=== PATIENT | female | born 1945 | race Caucasian/White ===

== ENCOUNTER → 2017-05-25 | Outpatient (CLI) | payer BC, OTHER, MEDICARE ==
--- NOTE | 2017-05-25 11:22 | RADIOLOGY REPORT (SQ) ---
EXAM DESCRIPTION: CT ABD/PELVIS NO ORAL OR IV; EMPLOYEE COMPLETED DATE/TIME: 05/25/2017 11:00 am REASON FOR STUDY: GROSS HEMATURIA R31.0 GROSS HEMATURIA COMPARISON: None. TECHNIQUE: CT scan of the abdomen and pelvis performed without intravenous or oral contrast. Images reviewed with lung, soft tissue, and bone windows. Reconstructed coronal and sagittal MPR images revi ewed. All images stored on PACS. All CT scanners at this facility use dose modulation, iterative reconstruction, and/or weight based d osing when appropriate to reduce radiation dose to as low as reasonably achievable (ALARA). [facility]: Dose Right [facility]: CareDose [facility]: Dose Right [facility]: Teradose 4D [facility]: Smart [employer] RADIATION DOSE: CT Rad equipment meets quality standard of care and radiation dose reduction techniq ues were employed. CTDIvol: 5.4 mGy. DLP: 264 mGy-cm.mGy. LIMITATIONS: None. FINDINGS: LOWER CHEST: Calcified granuloma. Large hiatal hernia. NON-CONTRASTED LIVER, SPLEEN, ADRENALS: Old granulomatous disease in the spleen. PANCREAS: No masses. No peripancreatic inflammatory changes. GALLBLADDER: No identified stones by CT criteria. No inflammatory changes to suggest cholecystitis. RIGHT KIDNEY AND URETER: No suspicious masses. Assessment limited by lack of IV contrast. No signif icant calcifications. No hydronephrosis or hydroureter. LEFT KIDNEY AND URETER: No suspicious masses. Assessment limited by lack of IV contrast. No signifi cant calcifications. No hydronephrosis or hydroureter. AORTA AND RETROPERITONEUM: No aneurysm. No retroperitoneal masses or adenopathy. BOWEL AND PERITONEAL CAVITY: Sigmoid diverticulosis. No obvious masses or inflammatory changes. No f ree fluid. APPENDIX: Small appendicolith. PELVIS, BLADDER, AND ABDOMINAL WALL:Small calcified uterine fibroid. BONES: No significant findings. OTHER: No other significant finding. IMPRESSION: NO SIGNIFICANT OR ACUTE PROCESS IN THE ABDOMEN OR PELVIS. COMMENT: Quality ID # 436: Final reports with documentation of one or more dose reduction techniques (e.g., Automated exposure control, adjustment of the mA and/or kV according to patient size, use of iterative reconstruction technique) TECHNICAL DOCUMENTATION: JOB ID: [id number] [employer]- All Rights Reserved Reading location - IP/workstation name: MECHANICAL ENGINEERING ADVISOREMILY
--- NOTE | 2017-05-25 11:22 | RADIOLOGY REPORT (SQ) ---
EXAM DESCRIPTION: CT ABD/PELVIS NO ORAL OR IV; EMPLOYEE COMPLETED DATE/TIME: 05/25/2017 11:00 am REASON FOR STUDY: GROSS HEMATURIA R31.0 GROSS HEMATURIA COMPARISON: None. TECHNIQUE: CT scan of the abdomen and pelvis performed without intravenous or oral contrast. Images reviewed with lung, soft tissue, and bone windows. Reconstructed coronal and sagittal MPR images revi ewed. All images stored on PACS. All CT scanners at this facility use dose modulation, iterative reconstruction, and/or weight based d osing when appropriate to reduce radiation dose to as low as reasonably achievable (ALARA). [facility]: Dose Right [facility]: CareDose [facility]: Dose Right [facility]: Teradose 4D [facility]: [employer] RADIATION DOSE: CT Rad equipment meets quality standard of care and radiation dose reduction techniq ues were employed. CTDIvol: 5.4 mGy. DLP: 264 mGy-cm.mGy. LIMITATIONS: None. FINDINGS: LOWER CHEST: Calcified granuloma. Large hiatal hernia. NON-CONTRASTED LIVER, SPLEEN, ADRENALS: Old granulomatous disease in the spleen. PANCREAS: No masses. No peripancreatic inflammatory changes. GALLBLADDER: No identified stones by CT criteria. No inflammatory changes to suggest cholecystitis. RIGHT KIDNEY AND URETER: No suspicious masses. Assessment limited by lack of IV contrast. No signif icant calcifications. No hydronephrosis or hydroureter. LEFT KIDNEY AND URETER: No suspicious masses. Assessment limited by lack of IV contrast. No signifi cant calcifications. No hydronephrosis or hydroureter. AORTA AND RETROPERITONEUM: No aneurysm. No retroperitoneal masses or adenopathy. BOWEL AND PERITONEAL CAVITY: Sigmoid diverticulosis. No obvious masses or inflammatory changes. No f ree fluid. APPENDIX: Small appendicolith. PELVIS, BLADDER, AND ABDOMINAL WALL:Small calcified uterine fibroid. BONES: No significant findings. OTHER: No other significant finding. IMPRESSION: NO SIGNIFICANT OR ACUTE PROCESS IN THE ABDOMEN OR PELVIS. COMMENT: Quality ID # 436: Final reports with documentation of one or more dose reduction techniques (e.g., Automated exposure control, adjustment of the mA and/or kV according to patient size, use of iterative reconstruction technique) TECHNICAL DOCUMENTATION: JOB ID: [id number] [employer]- All Rights Reserved Reading location - IP/workstation name: PATIENT REGISTRATION REPRESENTATIVEEMILY
== END ==
LOC: RAD 10:37
PROVIDERS: ATTEND Urology
DX: R31.0 Gross hematuria (principal)
CPT/HCPCS: 74176

== ENCOUNTER 2018-01-16 20:40 | Emergency (ER) | payer BC, MEDICARE ==
--- NOTE | 2018-01-16 21:23 | ER Document Report ---
ED Neuro Symptoms/Deficit - General Chief Complaint: S/S of Possible Stroke Stated Complaint: HAND PAIN Time Seen by Provider: 01/16/18 21:22 Notes: 72-year-old female to the emergency department for evaluation of left hand swelling. Patient also has been complaining of headaches. Has been having dizzy spells as well. Dizzy spells have been going on for several days. Was seen by primary care doctor this week and had a workup. They do not know the results. Denies any slurred speech however daughter states that when she gets anxious she has a hard time finding her words. Currently does not have a headache. Currently does not complain of any weakness. Also complaining of a swelling that was noticed on the left hand. Began to get swollen and pain began to migrate up her left arm. Appears to be a hematoma but she does not remember hitting it on anything. TRAVEL OUTSIDE OF THE [place] IN LAST 30 DAYS: No - HPI Patient complains to provider of: No: Difficulty standing, Facial Droop, Falling , Paralysis, Paresthesia, Speech Impairment, Vision Changes, Weakness Symptoms are: Intermittent episodes - Related Data Allergies/Adverse Reactions: No Known Allergies Allergy (Verified 03/15/13 08:15) Past Medical History - General Information source: Patient - Social History Smoking Status: Never Smoker Cigarette use (# per day): No Frequency of alcohol use: None Drug Abuse: None Lives with: Family Family History: Reviewed & Not Pertinent Neurological Medical History: Denies: Hx Seizures Traumatic Medical History: Reports: Hx Fractures - knee Past Surgical History: Reports: Hx Orthopedic Surgery - Immunizations Hx Diphtheria, Pertussis, Tetanus Vaccination: No Review of Systems - Review of Systems Notes: Constitutional: denies: Chills, Diaphoresis, Fever, Malaise, Weakness EENT: denies: Eye discharge, Blurred vision, Tearing, Double vision, Nose congestion, Nose discharge, Throat swelling, Mouth pain Cardiovascular: denies: Palpitations, Heart racing, Orthopnea, Dyspnea, Chest pain Respiratory: denies: Cough, Hurts to breathe, Wheezing, Shortness of breath Gastrointestinal: denies: Abdominal pain, Diarrhea, Nausea, Vomiting, Black stools, bright red blood in stool Genitourinary: denies: Burning, Dysuria, Discharge, Frequency, Flank pain, Hematuria Musculoskeletal: denies: Joint pain, Joint swelling, Muscle pain, Muscle stiffness, back pain. Does complain of swelling in the left hand Hematologic/Lymphatic: denies: Anemia, Easy bleeding, Easy bruising, Blood clots Neurological/Psychological: denies: Confusion, Dementia, Depression, Loss of consciousness, She does complain of headaches and some dizziness with vertigo Skin: No lesions, no masses, no skin breakdown, no abscesses Physical Exam - Vital signs Vitals: Temp Pulse Resp BP Pulse Ox 97.9 F 87 14 147/82 H 99 01/16/18 20:49 01/16/18 20:49 01/16/18 20:49 01/16/18 20:49 01/16/18 20:49 Interpretation: Normal - General General appearance: Appears well, Alert - HEENT Head: Normocephalic, Atraumatic Eyes: Normal Pupils: PERRL - Respiratory Respiratory status: No respiratory distress Chest status: Nontender Breath sounds: Normal Chest palpation: Normal - Cardiovascular Rhythm: Regular Heart sounds: Normal auscultation Murmur: No - Abdominal Inspection: Normal Distension: No distension Bowel sounds: Normal Tenderness: Nontender Organomegaly: No organomegaly - Back Back: Normal, Nontender - Extremities General upper extremity: Normal inspection, Nontender, Normal color, Normal ROM , Normal temperature General lower extremity: Normal inspection, Nontender, Normal color, Normal ROM , Normal temperature, Normal weight bearing. No: Melissa's sign - Neurological Neuro grossly intact: Yes Cognition: Normal Orientation: AAOx4 Levon Coma Scale Eye Opening: Spontaneous Simpson Coma Scale Verbal: Oriented Levon Coma Scale Motor: Obeys Commands Levon Coma Scale Total: 15 Speech: Normal Cranial nerves: Normal. No: Facial palsy, Sensory deficit, Tongue deviation Cerebellar coordination: Normal Motor strength normal: LUE, RUE, LLE, RLE Additional motor exam normals: Equal derrick helper. No: Pronator drift Sensory: Normal - Psychological Associated symptoms: Normal affect, Normal mood - Skin Skin Temperature: Warm Skin Moisture: Dry Skin Color: Normal, Other - There is a hematoma present on the dorsum of the left hand Course - Re-evaluation Re-evalutation: 01/16/18 22:42 Laboratory 01/16/18 01/16/18 01/16/18 21:30 21:30 21:30 WBC 5.5 RBC 4.35 Hgb 13.2 Hct 38.1 MCV 88 MCH 30.3 MCHC 34.7 RDW 13.4 Plt Count 194 Seg Neutrophils % 53.6 Lymphocytes % 35.4 Monocytes % 7.1 Eosinophils % 2.9 Basophils % 1.0 Absolute Neutrophils 3.0 Absolute Lymphocytes 2.0 Absolute Monocytes 0.4 Absolute Eosinophils 0.2 Absolute Basophils 0.1 PT 12.7 INR 0.91 APTT 25.2 Sodium 139.6 Potassium 3.8 Chloride 103 Carbon Dioxide 25 Anion Gap 12 BUN 22 H Creatinine 0.72 Est GFR ( Amer) > 60 Est GFR (Non-Af Amer) > 60 Glucose 73 L Calcium 9.3 Total Bilirubin 0.5 Direct Bilirubin 0.1 Neonat Total Bilirubin Not Reportable Neonat Direct Bilirubin Not Reportable Neonat Indirect Bili Not Reportable AST 27 ALT 19 Alkaline Phosphatase 63 Creatine Kinase 206 H CK-MB (CK-2) Troponin I Total Protein 6.5 Albumin 4.0 01/16/18 21:30 WBC RBC Hgb Hct MCV MCH MCHC RDW Plt Count Seg Neutrophils % Lymphocytes % Monocytes % Eosinophils % Basophils % Absolute Neutrophils Absolute Lymphocytes Absolute Monocytes Absolute Eosinophils Absolute Basophils PT INR APTT Sodium Potassium Chloride Carbon Dioxide Anion Gap BUN Creatinine Est GFR ( Amer) Est GFR (Non-Af Amer) Glucose Calcium Total Bilirubin Direct Bilirubin Neonat Total Bilirubin Neonat Direct Bilirubin Neonat Indirect Bili AST ALT Alkaline Phosphatase Creatine Kinase CK-MB (CK-2) 2.88 Troponin I < 0.012 Total Protein Albumin Chest X-Ray 01/16/18 21:22 IMPRESSION: No acute disease. Mild gastric hiatal hernia. Head CT 01/16/18 21:22 IMPRESSION: No acute intracranial abnormality is identified. Early infarcts are not always visualized with CT. If there is clinical concern for the possibility of acute ischemic change, MRI could be obtained to better evaluate. Generalized atrophy with microvascular ischemic changes. Currently there is no evidence of acute intracranial issues. Labs are unremarkable. 01/16/18 23:33 Repeat exam performed. Patient is a and O x4. No focal neurological changes noted. No evidence of stroke. I am more concerned that this could be migrainous activity. Patient now states that she has had a history of migraine headaches but it is been years since she has had these symptoms. I am going to order her an outpatient MRI and have results sent to her primary care doctor as well as 1 of the hospitalist here that personally knows the patient. Patient and daughter are comfortable with this plan. Strict instructions have been given to return immediately for any worsening symptoms or concerns. Anticipate discharge shortly. - Vital Signs Vital signs: Temp Pulse Resp BP Pulse Ox 97.9 F 87 14 147/82 H 99 01/16/18 20:49 01/16/18 20:49 01/16/18 20:49 01/16/18 20:49 01/16/18 20:49 - Laboratory Result Diagrams: 01/16/18 21:30 01/16/18 21:30 - EKG Interpretation by [facility] EKG shows normal: Sinus rhythm, [place], Intervals, QRS Complexes, ST-T Waves Discharge - Discharge Clinical Impression: Spontaneous hematoma of hand Headache Qualifiers: Headache type: unspecified Headache chronicity pattern: episodic headache Intractability: not intractable Qualified Code(s): R51 - Headache Condition: Good Disposition: HOME, SELF-CARE Instructions: Intravenous Compazine for Headaches ([facility]), Cluster Headache ([facility]) , Headache ([facility]), Hematoma ([facility]) Additional Instructions: Chest x-ray please follow-up with your regular doctor for further evaluation and treatment. Return immediately for any worsening symptoms or concerns. Forms: Follow-Up Radiology Testing Referrals: LUIS F BAHENA FNP [Primary Care Provider] - Follow up tomorrow
--- NOTE | 2018-01-16 21:47 | EKG REPORT ---
SEVERITY:- NORMAL ECG - SINUS RHYTHM : Confirmed by: Manuel Rooney MD 16-Jan-2018 21:46:38
[2018-01-16 21:51] LABS: INTERNATIONAL RATION (INR) 0.91
[2018-01-16 21:52] LABS: ABSOLUTE BASOPHILS # (AUTO) 0.1 10^3/uL (0.0-0.2); ABSOLUTE EOSINOPHILS # (AUTO) 0.2 10^3/uL (0.0-0.6); ABSOLUTE MONOCYTES (AUTO) 0.4 10^3/uL (0.1-1.4); EOSINOPHILS % (AUTO) 2.9 % (0-6); HEMATOCRIT 38.1 % (36.0-47.0); HEMOGLOBIN 13.2 g/dL (12.0-15.5); LYMPHOCYTES % (AUTO) 35.4 % (13-45); MEAN CORPUSCULAR HEMOGLOBIN 30.3 pg (27.0-33.4); MEAN CORPUSCULAR HGB CONC 34.7 g/dL (32.0-36.0); MEAN CORPUSCULAR VOLUME 88 fl (80-97); MONOCYTES % (AUTO) 7.1 % (3-13); PARTIAL THROMBOPLASTIN TIME 25.2 SEC (23.5-35.8); PLATELET COUNT 194 10^3/uL (150-450); RED BLOOD COUNT 4.35 10^6/uL (3.72-5.28); RED CELL DISTRIBUTION WIDTH 13.4 % (11.5-14.0); SEGMENTED NEUTROPHILS % (AUTO) 53.6 % (42-78); TOTAL CELLS COUNTED % (AUTO) 100 %; WHITE BLOOD COUNT 5.5 10^3/uL (4.0-10.5)
[2018-01-16 21:56] LABS: PROTHROMBIN TIME 12.7 SEC (11.4-15.4)
--- NOTE | 2018-01-16 22:01 | RADIOLOGY REPORT (SQ) ---
EXAM DESCRIPTION: XR CHEST 1 VIEW COMPLETED DATE/TME: 01/16/2018 21:22 CLINICAL HISTORY: 72 years, Female, left arm pain Findings: Heart is mildly enlarged. Mild gastric hiatal hernia. No consolidation or pleural effusion. No pulmonary edema or pneumothorax. IMPRESSION: No acute disease. Mild gastric hiatal hernia.
[2018-01-16 22:02] LABS: ALANINE AMINOTRANSFERASE 19 U/L (9-52); ALKALINE PHOSPHATASE 63 U/L (38-126); ANION GAP 12 (5-19); ASPARTATE AMINO TRANSFERASE 27 U/L (14-36); BILIRUBIN,DIRECT 0.1 mg/dL (0.0-0.4); BILIRUBIN,TOTAL 0.5 mg/dL (0.2-1.3); BLOOD UREA NITROGEN 22 mg/dL (7-20); CALCIUM 9.3 mg/dL (8.4-10.2); CARBON DIOXIDE 25 mmol/L (22-30); CHLORIDE 103 mmol/L (98-107); CREATINE KINASE 206 U/L (30-135); GLUCOSE 73 mg/dL (75-110); POTASSIUM 3.8 mmol/L (3.6-5.0); SODIUM 139.6 mmol/L (137-145); TOTAL PROTEIN 6.5 g/dL (6.3-8.2)
--- NOTE | 2018-01-16 22:13 | RADIOLOGY REPORT (SQ) ---
EXAM DESCRIPTION: CT HEAD WITHOUT IV CONTRAST COMPLETED DATE/TME: 01/16/2018 21:22 CLINICAL HISTORY: 72 years Female left arm weakness, headache and weakness COMPARISON: None. TECHNIQUE: Contiguous axial CT images obtained through the brain without IV contrast. This exam was performed according to our department optimization program which includes automated exposure control, adjustment of the mA and/or kv according to patient size and/or use of iterative reconstruction technique. FINDINGS: The ventricles and sulci are prominent consistent with atrophic changes. Microvascular ischemic changes. No midline shift or mass effect. No mass lesions. No acute hemorrhage. Atherosclerotic calcifications. No fluid or significant mucosal thickening in the visualized paranasal sinuses. No depressed calvarial fractures. IMPRESSION: No acute intracranial abnormality is identified. Early infarcts are not always visualized with CT. If there is clinical concern for the possibility of acute ischemic change, MRI could be obtained to better evaluate. Generalized atrophy with microvascular ischemic changes.
[2018-01-16 22:14] LABS: CREATINE KINASE MB 2.88 ng/mL (<4.55)
[2018-01-16 22:16] LABS: TROPONIN I < 0.012 ng/mL
[2018-01-16 23:07] LABS: APPEARANCE,URINE CLEAR; BILIRUBIN,URINE NEGATIVE (NEGATIVE); COLOR,URINE STRAW; GLUCOSE, URINE NEGATIVE (NEGATIVE); KETONES,URINE NEGATIVE (NEGATIVE); LEUKOCYTE ESTERASE,URINE MODERATE (NEGATIVE); NITRITE,URINE NEGATIVE (NEGATIVE); PROTEIN,URINE NEGATIVE (NEGATIVE); URINE SPECIFIC GRAVITY 1.011; UROBILINOGEN,URINE NEGATIVE mg/dL (<2.0)
[2018-01-16] MEDS ORDERED: METHYLPREDNISOLONE INJ 125 MG/2 ML SDV IV ONE (23:32)
[2018-01-16] MEDS ORDERED: DIPHENHYDRAMINE HCL 50 MG/ML VIAL IV ONE (23:32)
[2018-01-16] MEDS ORDERED: KETOROLAC TROMETHAMINE INJ/PF 30 MG/1 ML SDV IV ONE (23:32)
[2018-01-16] MEDS ORDERED: PROCHLORPERAZINE EDISYLATE INJ 10 MG/2 ML VIAL IV ONE (23:32)
[2018-01-17 00:15] VITALS: BP 159/87
== END 2018-01-17 00:42 | disposition home or self-care (01) ==
LOC: ER 20:40
DX: R23.3 Spontaneous ecchymoses (principal); M79.642 Pain in left hand; R51 Headache; M79.89 Other specified soft tissue disorders; R42 Dizziness and giddiness; F41.9 Anxiety disorder, unspecified
CPT/HCPCS: 93005; 99284; 96374; 96375; 36415; 82553; 82550; 85025; 85610; 85730; 80053; 81001; 84484; 71045; 70450; 93010; J1200; J2930; J1885; J0780

== ENCOUNTER → 2018-01-18 | Outpatient (CLI) | payer BC, MEDICARE, OTHER ==
--- NOTE | 2018-01-18 15:40 | RADIOLOGY REPORT (SQ) ---
EXAM DESCRIPTION: MRI HEAD WITHOUT COMPLETED DATE/TIME: 01/18/2018 3:20 pm REASON FOR STUDY: R51 HEADACHES R42 DIZZINESS AND GIDDINESS R42 DIZZINESS AND GIDDINESS R51 HEADAC HE COMPARISON: CT brain 01/16/2018 TECHNIQUE: Multiplanar imaging includes non-contrasted T1, T2, FLAIR, and diffusion with ADC map seq uences. Images stored on PACS. LIMITATIONS: None. FINDINGS: ANATOMY: No developmental anomalies. Normal vascular flow voids. Pituitary fossa normal. CSF SPACES: Normal in size and contour. No hemorrhage. CEREBRUM: Minimal age-appropriate small vessel ischemic change with high signal in bifrontal deep per iventricular white matter. Old lacunar infarct left basal ganglia. No MR evidence of acute large te rritory ischemic change, acute intracranial hemorrhage, mass effect, or midline shift POSTERIOR FOSSA: Minimal age-appropriate pontine small vessel ischemic change, chronic. No hemorrhage . No edema, masses or mass effect. Internal auditory canals, cerebello-pontine angles, mastoids norm al. DIFFUSION IMAGING: Negative for acute or sub-acute infarction. ORBITS: No masses. Globes normal. PARANASAL SINUSES: No fluid levels. Mucosa normal. OTHER: No other significant finding. 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 OTHERWISE, UNREMARKABLE MRI OF THE BRAIN WITHOUT INTRAVENOUS GADOLINIUM CONTRAST. EVIDENCE OF ACUTE STROKE: NO. TECHNICAL DOCUMENTATION: JOB ID: [id number] [employer]- All Rights Reserved Reading location - IP/workstation name: [facility]
== END ==
LOC: RAD 15:21
PROVIDERS: ATTEND Emergency Medicine
DX: R51 Headache (principal); R42 Dizziness and giddiness
CPT/HCPCS: 70551

== ENCOUNTER → 2018-02-11 | Outpatient (CLI) | payer BC, MEDICARE, OTHER ==
[2018-02-11 09:15] LABS: BLOOD UREA NITROGEN 15 mg/dL (7-20); CHOLESTEROL 205.19 mg/dL (0-200); TRIGLYCERIDES 101 mg/dL (<150)
--- NOTE | 2018-02-11 09:17 | RADIOLOGY REPORT (SQ) ---
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 TECHNIQUE: Axial dynamic scanning technique with dynamic contrast enhancement through the EXTRAcran ial carotid and vertebral arteries. Multiplanar reconstruction. 3-D MIPS and Volume-rendered image s acquired at the workstation and saved to PACS. Images are reviewed in soft tissue, bone, lung wi ndows. Axial dynamic scanning technique with dynamic contrast enhancement through the INTRAcranial carotid and vertebral arteries. Multiplanar reconstruction. 3-D MIPS and Volume-rendered images acquired at the workstation and saved to PACS. Images are reviewed in soft tissue, bone, lung windows. All CT scanners at this facility use dose modulation, iterative reconstruction, and/or weight based d osing when appropriate to reduce radiation dose to as low as reasonably achievable (ALARA). [facility]: Dose Right [facility]: CareDose [facility]: Dose Right [facility]: Teradose 4D [facility]: [employer] CONTRAST TYPE AND DOSE: contrast/concentration: Isovue 350.00 mg/ml; Total Contrast Delivered: 80.0 ml; Total Saline Delivered: 75.0 ml RENAL FUNCTION: Estimated GFR 82 LIMITATIONS: None. FINDINGS: EXTRACRANIAL CIRCULATION: AORTIC ARCH: Normal three-vessel origin. Bilateral subclavian arteries are patent. No dissection. RIGHT CAROTIDS: Patent common, internal and external carotid arteries without suggestion of significa nt stenosis or irregular plaque. No dissection. RIGHT VERTEBRAL: Patent. No dissection. LEFT CAROTIDS: Patent common, internal and external carotid arteries without suggestion of significan t stenosis or irregular plaque. No dissection. LEFT VERTEBRAL: Patent. No dissection. OTHER: No neck masses or adenopathy. Naso, humphrey, and hypopharynx, laryngeal structures, major salivar y glands unremarkable. Moderate diffuse degenerative changes cervical spine. INTRACRANIAL CIRCULATION: ANTERIOR CIRCULATION: Widely patent intracranial carotid arteries, bilateral anterior and middle cer ebral arteries. Post communicating arteries are patent. No [place] of [place] aneurysm, vascular malf ormation or stenosis. POSTERIOR CIRCULATION: Vertebral arteries at the skullbase, basilar artery, cerebellar arteries, pos terior cerebral arteries are all widely patent. No vascular malformation or aneurysm. BRAIN ORBITS AND SINUSES: Mild bifrontal chronic small vessel ischemic change. No CT evidence of ac [place] intracranial hemorrhage, mass effect, midline shift or acute large territory ischemic change. Po st bilateral cataract surgery. The sinuses and mastoid air cells are clear. OTHER: No additional findings OTHER: 3-D reconstructions confirm findings. IMPRESSION: NORMAL CTA OF THE EXTRA-CRANIAL AND INTRACRANIAL CAROTID AND VERTEBRAL ARTERIES. COMMENT: Quality ID #[id number]: Measurements of distal internal carotid diameter were used as the denomina tor for stenosis measurement. TECHNICAL DOCUMENTATION: JOB ID: [id number] Quality ID # 436: Final reports with documentation of one or more dose reduction techniques (e.g., Au tomated exposure control, adjustment of the mA and/or kV according to patient size, use of iterative reconstruction technique) 2010 [employer]- All Rights Reserved Reading location - IP/workstation name: [email or web address]
--- NOTE | 2018-02-11 09:17 | RADIOLOGY REPORT (SQ) ---
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 TECHNIQUE: Axial dynamic scanning technique with dynamic contrast enhancement through the EXTRAcran ial carotid and vertebral arteries. Multiplanar reconstruction. 3-D MIPS and Volume-rendered image s acquired at the workstation and saved to PACS. Images are reviewed in soft tissue, bone, lung wi ndows. Axial dynamic scanning technique with dynamic contrast enhancement through the INTRAcranial carotid and vertebral arteries. Multiplanar reconstruction. 3-D MIPS and Volume-rendered images acquired at the workstation and saved to PACS. Images are reviewed in soft tissue, bone, lung windows. All CT scanners at this facility use dose modulation, iterative reconstruction, and/or weight based d osing when appropriate to reduce radiation dose to as low as reasonably achievable (ALARA). [facility]: Dose Right [facility]: CareDose [facility]: Dose Right [facility]: Teradose 4D [facility]: [employer] CONTRAST TYPE AND DOSE: contrast/concentration: Isovue 350.00 mg/ml; Total Contrast Delivered: 80.0 ml; Total Saline Delivered: 75.0 ml RENAL FUNCTION: Estimated GFR 82 LIMITATIONS: None. FINDINGS: EXTRACRANIAL CIRCULATION: AORTIC ARCH: Normal three-vessel origin. Bilateral subclavian arteries are patent. No dissection. RIGHT CAROTIDS: Patent common, internal and external carotid arteries without suggestion of significa nt stenosis or irregular plaque. No dissection. RIGHT VERTEBRAL: Patent. No dissection. LEFT CAROTIDS: Patent common, internal and external carotid arteries without suggestion of significan t stenosis or irregular plaque. No dissection. LEFT VERTEBRAL: Patent. No dissection. OTHER: No neck masses or adenopathy. Naso, humphrey, and hypopharynx, laryngeal structures, major salivar y glands unremarkable. Moderate diffuse degenerative changes cervical spine. INTRACRANIAL CIRCULATION: ANTERIOR CIRCULATION: Widely patent intracranial carotid arteries, bilateral anterior and middle cer ebral arteries. Post communicating arteries are patent. No [place] of [place] aneurysm, vascular malf ormation or stenosis. POSTERIOR CIRCULATION: Vertebral arteries at the skullbase, basilar artery, cerebellar arteries, pos terior cerebral arteries are all widely patent. No vascular malformation or aneurysm. BRAIN ORBITS AND SINUSES: Mild bifrontal chronic small vessel ischemic change. No CT evidence of ac [place] intracranial hemorrhage, mass effect, midline shift or acute large territory ischemic change. Po st bilateral cataract surgery. The sinuses and mastoid air cells are clear. OTHER: No additional findings OTHER: 3-D reconstructions confirm findings. IMPRESSION: NORMAL CTA OF THE EXTRA-CRANIAL AND INTRACRANIAL CAROTID AND VERTEBRAL ARTERIES. COMMENT: Quality ID #[id number]: Measurements of distal internal carotid diameter were used as the denomina tor for stenosis measurement. TECHNICAL DOCUMENTATION: JOB ID: [id number] Quality ID # 436: Final reports with documentation of one or more dose reduction techniques (e.g., Au tomated exposure control, adjustment of the mA and/or kV according to patient size, use of iterative reconstruction technique) 2010 [employer]- All Rights Reserved Reading location - IP/workstation name: [email or web address]
[2018-02-11 09:25] LABS: DIRECT LDL 119 mg/dL (<100)
== END ==
LOC: RAD 07:48
PROVIDERS: ATTEND Nurse Practitioner
DX: Z86.73 Personal history of transient ischemic attack (TIA), and cerebral infarction without residual deficits (principal)
CPT/HCPCS: 36415; 70496; 70498; 80061; 82565; 84520

== ENCOUNTER 2018-05-04 07:39 | Emergency (ER) | payer BC, MEDICARE, OTHER ==
--- NOTE | 2018-05-04 08:52 | RADIOLOGY REPORT (SQ) ---
EXAM DESCRIPTION: L SPINE WHOLE COMPLETED DATE/TIME: 05/04/2018 8:41 am REASON FOR STUDY: fall, hit head COMPARISON: 03/15/2013 NUMBER OF VIEWS: Five views including obliques. TECHNIQUE: AP, lateral, oblique, and sacral radiographic images acquired of the lumbar spine. LIMITATIONS: None. FINDINGS: MINERALIZATION: Normal. SEGMENTATION: Normal. No transitional anatomy. ALIGNMENT: Normal. VERTEBRAE: Maintained height. No fracture or worrisome bone lesion. DISCS: Generally moderate multilevel disc degenerative disease and osteophytosis not significantly ch anged from prior. POSTERIOR ELEMENTS: Pedicles and facets are intact. No pars defect or posterior arch defects. HARDWARE: None in the spine. PARASPINAL SOFT TISSUES: Normal. PELVIS: Intact as visualized. No fractures or worrisome bone lesions. SI joints intact. OTHER: No other significant finding. IMPRESSION: No fracture or dislocation of the lumbar spine. Generally moderate multilevel disc and facet degenerative disease. TECHNICAL DOCUMENTATION: JOB ID: [id number] [employer]- All Rights Reserved Reading location - IP/workstation name: [email or web address]
--- NOTE | 2018-05-04 09:07 | RADIOLOGY REPORT (SQ) ---
EXAM DESCRIPTION: CT HEAD WITHOUT COMPLETED DATE/TIME: 05/04/2018 8:48 am REASON FOR STUDY: fall, hit head COMPARISON: CT brain 02/11/2018 TECHNIQUE: Axial images acquired through the brain without intravenous contrast. Images reviewed wi th bone, brain and subdural windows. Additional sagittal and coronal reconstructions were generated. Images stored on PACS. All CT scanners at this facility use dose modulation, iterative reconstruction, and/or weight based d osing when appropriate to reduce radiation dose to as low as reasonably achievable (ALARA). [facility]: Dose Right [facility]: CareDose [facility]: Dose Right [facility]: Teradose 4D [facility]: [employer] RADIATION DOSE: CT Rad equipment meets quality standard of care and radiation dose reduction techniq ues were employed. CTDIvol: 53.2 mGy. DLP: 1017 mGy-cm. mGy. LIMITATIONS: None. FINDINGS: VENTRICLES: Normal size and contour. CEREBRUM: No masses. No hemorrhage. No midline shift. No evidence for acute infarction. Minimal wh ite matter disease in the left frontal deep periventricular white matter with tiny chronic lacunar in farct in the left anterior basal ganglia CEREBELLUM: No masses. No hemorrhage. No alteration of density. No evidence for acute infarction. EXTRAAXIAL SPACES: No fluid collections. No masses. ORBITS AND GLOBE: No intra- or extraconal masses. Normal contour of globe without masses. CALVARIUM: No fracture. PARANASAL SINUSES: No fluid or mucosal thickening. SOFT TISSUES: Right parietal scalp hematoma without underlying skull fracture or acute intracranial c hanges OTHER: No other significant finding. IMPRESSION: No acute findings EVIDENCE OF ACUTE STROKE: NO. COMMENT: Quality ID # [id number]: Final reports with documentation of one or more dose reduction techniques (e.g., Automated exposure control, adjustment of the mA and/or kV according to patient size, use of iterative reconstruction technique) TECHNICAL DOCUMENTATION: JOB ID: [id number] [employer]- All Rights Reserved Reading location - IP/workstation name: [email or web address]
[2018-05-04] MEDS ORDERED: TRAMADOL HCL 50 MG TABLET PO ONE (09:26)
[2018-05-04 10:48] VITALS: BP 140/83
--- NOTE | 2018-05-04 14:07 | ER Document Report ---
Entered by SUNNY MACDONALD SCRIBE 05/04/18 0825 Acting as scribe for:ARMAAN MOURA MD ED Fall - General Chief Complaint: Fall Stated Complaint: FALL/HEAD PAIN Time Seen by Provider: 05/04/18 08:05 Mode of Arrival: Ambulatory Information source: Patient Notes: 73-year-old female who presents to the emergency department today with complaints of a fall that occurred just prior to arrival. Patient states she was on the second stair, stepped on her cat, and fell down. Patient states her buttocks was the first to make impact and then the back of her head hit. Conrad navarrete states in 2013 or 2014 she had an "H fracture of her pelvis". Patient complains of a headache and low back pain. Patient denies any loss of consciousness or neck pain. TRAVEL OUTSIDE OF THE [place] IN LAST 30 DAYS: No - Related data Allergies/Adverse Reactions: codeine Adverse Reaction (Verified 05/04/18 07:41) Past Medical History - General Information source: Patient - Social History Smoking Status: Never Smoker Cigarette use (# per day): No Frequency of alcohol use: None Drug Abuse: None Lives with: Family Family History: Reviewed & Not Pertinent Traumatic Medical History: Reports: Hx Fractures - knee Past Surgical History: Reports: Hx Orthopedic Surgery - Immunizations Hx Diphtheria, Pertussis, Tetanus Vaccination: No Review of Systems - Review of Systems Constitutional: No symptoms reported EENT: No symptoms reported Cardiovascular: No symptoms reported Respiratory: No symptoms reported Gastrointestinal: No symptoms reported Genitourinary: No symptoms reported Female Genitourinary: No symptoms reported Musculoskeletal: See HPI, Back pain Skin: No symptoms reported Hematologic/Lymphatic: No symptoms reported Neurological/Psychological: See HPI, Headaches. denies: Lost consciousness -: Yes All other systems reviewed and negative Physical Exam - Vital signs Vitals: Temp Pulse Resp BP Pulse Ox 98.0 F 75 16 149/77 H 99 05/04/18 07:44 05/04/18 07:44 05/04/18 07:44 05/04/18 07:44 05/04/18 07:44 - Notes Notes: Physical Exam: General: Alert, appears well. HEENT: Normocephalic. Atraumatic. PERRL. Extraocular movements intact. Oropharynx clear. Neck: Supple. Non-tender. Respiratory: No respiratory distress. Clear and equal breath sounds bilaterally. Cardiovascular: Regular rate and rhythm. Abdominal: Normal Inspection. Non-tender. No distension. Normal Bowel Sounds. Back: Mild tenderness to palpation over the lumbosacral junction. No deformity or step off. Extremities: Moves all four extremities. Upper extremities: Normal inspection. Normal ROM. Lower extremities: Normal inspection. No edema. Normal ROM. Neurological: Normal cognition. AAOx4. Normal speech. Psychological: Normal affect. Normal Mood. Skin: Warm. Dry. Normal color. Course - Vital Signs Vital signs: Temp Pulse Resp BP Pulse Ox 98.0 F 75 16 149/77 H 99 05/04/18 07:44 05/04/18 07:44 05/04/18 07:44 05/04/18 07:44 05/04/18 07:44 - Diagnostic Test Radiology reviewed: Image reviewed, Reports reviewed - Lumbar sacral back x-ray shows advanced degenerative disc disease, with no change from prior films. CT scan of the head does not show any acute intracranial abnormalities. Discharge - Discharge Clinical Impression: Fall Qualifiers: Encounter type: initial encounter Qualified Code(s): W19.XXXA - Unspecified fall, initial encounter Scalp contusion Qualifiers: Encounter type: initial encounter Qualified Code(s): S00.03XA - Contusion of scalp, initial encounter Sacral contusion Qualifiers: Encounter type: initial encounter Qualified Code(s): S30.0XXA - Contusion of lower back and pelvis, initial encounter Condition: Stable Disposition: HOME, SELF-CARE Additional Instructions: Scalp and Lumbar-Sacral Contusion: Your injury has resulted in a contusion -- a crushing of the deep tissues. No injury to important structures was detected during the physician's exam. Contusions vary in the amount of pain they cause, and in the length of time required for healing. Typically, the area will become bruised, and will remain painful to touch for two or three weeks. However, most patients are back to working and playing within a few days. After the initial period of rest and cold-packs, your symptoms (together with the doctor's recommendations) will determine how rapidly you can get back to full activity. Usually this means "do what feels okay, but don't do things that hurt." If re-examination was recommended, it's important to follow up as instructed. Call the doctor or return any time if pain increases, if swelling becomes severe, if you develop numbness or weakness in an injured extremity, or if any other alarming symptoms occur. Take Tylenol and ibuprofen for pain as needed. Take the tramadol as prescribed for additional pain relief if needed. Use ice packs to the painful areas today. Rest and limit activity for the next 2-3 days. Follow-up with your primary care provider if not improving. RETURN TO THE EMERGENCY ROOM IF ANY NEW OR WORSENING SYMPTOMS. Prescriptions: Tramadol HCl [Ultram 50 mg Tablet] 50 mg PO Q4 PRN #20 tablet PRN Reason: For Pain Forms: Return to Work Scribe Attestation: 05/04/18 09:27 I personally performed the services described in the documentation, reviewed and edited the documentation which was dictated to the scribe in my presence, and it accurately records my words and actions. I personally performed the services described in the documentation, reviewed and edited the documentation which was dictated to the scribe in my presence, and it accurately records my words and actions.
== END 2018-05-04 10:49 | disposition home or self-care (01) ==
LOC: ER 07:39
DX: S00.03XA Contusion of scalp, initial encounter (principal); S30.0XXA Contusion of lower back and pelvis, initial encounter; R51 Headache; M54.5 Low back pain; W19.XXXA Unspecified fall, initial encounter
CPT/HCPCS: 70450; 72110; 99283

== ENCOUNTER → 2018-05-31 | Outpatient (CLI) | payer BC, MEDICARE, OTHER ==
--- NOTE | 2018-06-01 08:31 | RADIOLOGY REPORT (SQ) ---
EXAM DESCRIPTION: MRI LUMBAR SPINE WITHOUT COMPLETED DATE/TIME: 05/31/2018 5:10 pm REASON FOR STUDY: M54.5 LOW BACK PAIN R29.898 OTH SYMPTOMS AND SIGNS INVOLVING THE MUSCULOSKE W19.XX XD UNSPECIFIED FALL, SUBSEQUENT ENCOUNTER R29.898 OTH SYMPTOMS AND SIGNS INVOLVING THE MUSCULOSKELE JODI M54.5 LOW BACK PAIN COMPARISON: CT abdomen pelvis 05/25/2017 Lumbar spine radiographs 05/04/2018 TECHNIQUE: Sagittal and Axial imaging includes T1, T2, STIR and gradient echo sequences. Coronal T2/ HASTE imaging. LIMITATIONS: None. FINDINGS: VISUALIZED UPPER ABDOMEN: Limited evaluation. No acute or suspicious findings suggested. SEGMENTATION: No transitional anatomy. The lowest well-developed disc space is labeled L5-S1. ALIGNMENT: Anatomic. VERTEBRAE: Intact. BONE MARROW: Normal. No marrow replacement or reactive changes. DISC SIGNAL: Diffuse decreased T2 weighted intervertebral disc signal. Disc space loss of height at T12-L1, L1-2, L4-5 and L5-S1. POSTERIOR ELEMENTS: Degenerative spondylolysis without listhesis at L5 HARDWARE: None in the spine. CORD AND CONUS: Normal in size and signal intensity. Conus at the L3-4 level. SOFT TISSUES: No aortic aneurysm seen. No bulky retroperitoneal adenopathy or mass. No paraspinal mas s or fluid. T10-11: At the upper edge of the field of view. Mild bilateral facet hypertrophy with mild bilatera l foraminal narrowing. No central stenosis. T11-12: Mild bilateral facet hypertrophy with mild bilateral foraminal narrowing. No central stenos is T12-L1: Mild diffuse posterior disc bulging, mild bilateral facet hypertrophy with mild bilateral fo raminal narrowing. No central stenosis. L1-L2: Mild diffuse posterior disc bulging, moderate bilateral facet and ligament hypertrophy. Mild central canal narrowing with flattening of the thecal sac into a triangular shape. There is moderate bilateral foraminal narrowing without definite exiting L1 nerve root impingement. L2-L3: Broad diffuse posterior disc bulging and bulky bilateral facet and ligament hypertrophy cause mild central canal narrowing with flattening of the thecal sac into a triangular shape. There is mil d bilateral foraminal narrowing without exiting L2 nerve root impingement L3-L4: Mild diffuse posterior disc bulging, moderate bilateral facet and ligament hypertrophy. Borde rline central canal stenosis with flattening of the thecal sac into a triangular shape. Mild bilater al foraminal narrowing without exiting L3 nerve root impingement L4-L5: Mild diffuse posterior disc bulging, moderate bilateral facet and ligament hypertrophy. Mild central canal stenosis with flattening of the thecal sac into a triangular shape. Mild bilateral for aminal narrowing without exiting L4 nerve root impingement. L5-S1: There is bilateral L5 sclerosis of the pars interarticularis on axial images [address] bilateral degenerative spondylolysis without listhesis. Minimal posterior disc bulging, mild bila teral facet hypertrophy. Mild bilateral foraminal narrowing without exiting L5 nerve root impingemen t. SACRUM: Visualized upper sacrum intact. OTHER: No other significant findings. IMPRESSION: Diffuse degenerative changes without high-grade central or foraminal encroachment. Low lying conus at the L3-4 level TECHNICAL DOCUMENTATION: JOB ID: [id number] [employer]- All Rights Reserved Reading location - IP/workstation name: [email or web address]
== END ==
LOC: RAD 18:31
PROVIDERS: ATTEND Nurse Practitioner
DX: W19.XXXD Unspecified fall, subsequent encounter (principal); R29.898 Other symptoms and signs involving the musculoskeletal system; M54.5 Low back pain; E88.89 Other specified metabolic disorders
CPT/HCPCS: 72148

== ENCOUNTER → 2018-09-07 | Outpatient (CLI) | payer BC, MEDICARE, OTHER ==
--- NOTE | 2018-09-07 15:49 | RADIOLOGY REPORT (SQ) ---
EXAM DESCRIPTION: CT ABD/PELVIS WITH IV ORAL COMPLETED DATE/TIME: 09/07/2018 3:28 pm REASON FOR STUDY: K57.90 DVRTCLOS OF INTEST, PART UNSP, W/O PERF OR ABSCESS W/O BLEED K57.90 DVRTCL OS OF INTEST, PART UNSP, W/O PERF OR ABSCESS W/ COMPARISON: 05/25/2017 TECHNIQUE: CT scan of the abdomen and pelvis performed using helical scanning technique with dynamic intravenous contrast injection. Oral contrast. Images reviewed with lung, soft tissue, and bone win dows. Reconstructed coronal and sagittal MPR images reviewed. Delayed images for evaluation of the ur inary system also acquired. All images stored on PACS. All CT scanners at this facility use dose modulation, iterative reconstruction, and/or weight based d osing when appropriate to reduce radiation dose to as low as reasonably achievable (ALARA). [facility]: Dose Right [facility]: CareDose [facility]: Dose Right [facility]: Teradose 4D [facility]: [employer] CONTRAST TYPE AND DOSE: contrast/concentration: Isovue 350.00 mg/ml; Total Contrast Delivered: 73.0 ml; Total Saline Delivered: 66.0 ml RENAL FUNCTION: Creatinine 0.8 RADIATION DOSE: CT Rad equipment meets quality standard of care and radiation dose reduction techniq ues were employed. CTDIvol: 4.4 - 5.1 mGy. DLP: 436 mGy-cm.. LIMITATIONS: None. FINDINGS: LOWER CHEST: Hiatal hernia. LIVER: Normal size. No masses. No dilated ducts. SPLEEN: Normal size. No focal lesions. PANCREAS: No masses. No significant calcifications. No adjacent inflammation or peripancreatic fluid collections. Pancreatic duct not dilated. GALLBLADDER: No identified stones by CT criteria. No inflammatory changes to suggest cholecystitis. ADRENAL GLANDS: No significant masses or asymmetry. RIGHT KIDNEY AND URETER: No solid masses. No significant calcifications. No hydronephrosis or hyd roureter. LEFT KIDNEY AND URETER: No solid masses. No significant calcifications. No hydronephrosis or hydr oureter. AORTA AND VESSELS: No aneurysm. No dissection. Renal arteries, SMA, celiac without stenosis. RETROPERITONEUM: No retroperitoneal adenopathy, hemorrhage or masses. BOWEL AND PERITONEAL CAVITY: Sigmoid diverticulosis with no associated inflammation. APPENDIX: Normal. PELVIS: No mass. No free fluid. Normal bladder. ABDOMINAL WALL: No masses. No hernias. BONES: No significant or acute findings. OTHER: No other significant finding. IMPRESSION: Diverticulosis coli. Small hiatal hernia. No acute findings in the abdomen or pelvis. TECHNICAL DOCUMENTATION: JOB ID: [id number] Quality ID # [id number]: Final reports with documentation of one or more dose reduction techniques (e.g., Au tomated exposure control, adjustment of the mA and/or kV according to patient size, use of iterative reconstruction technique) 2010 [employer]- All Rights Reserved Reading location - IP/workstation name: [email or web address]
== END ==
LOC: RAD 14:58
PROVIDERS: ATTEND Internal Medicine
DX: K57.30 Diverticulosis of large intestine without perforation or abscess without bleeding (principal); R10.9 Unspecified abdominal pain; K44.9 Diaphragmatic hernia without obstruction or gangrene
CPT/HCPCS: 74177; 82565

== ENCOUNTER → 2018-09-14 | Outpatient (CLI) | payer BC, MEDICARE, OTHER ==
--- NOTE | 2018-09-14 15:02 | WOMENS IMAGING REPORT ---
EXAM DESCRIPTION: BONE DENSITY HIP/SPINE COMPLETED DATE/TIME: 09/14/2018 2:19 pm REASON FOR STUDY: N95.9 UNSPECIFIED MENOPAUSAL N95.9 UNSPECIFIED MENOPAUSAL AND PERIMENOPAUSAL DISO RDER COMPARISON: None. TECHNIQUE: Dual-Energy X-ray Absorptiometry (DEXA) of the AP Spine and Hip. LIMITATIONS: None. FINDINGS: LUMBAR SPINE: The bone mineral density (BMD) measured from L1-L4 in the AP projection correlates with a T-score of +0.1, which is normal as defined by the World Health Organization. HIP: The bone mineral density (BMD) measured in the left femoral neck at the hip correlates with a T-score of -1.9, which is osteopenic as defined by the World Health Organization. IMPRESSION: 1. LUMBAR SPINE: Normal 2. HIP: Osteopenic COMMENT: The World Health Organization defines low BMD as follows: T-score: Normal: Greater than -1.0 Osteopenia: Between -1.0 and -2.5 Osteoporosis: Less than -2.5 without fractures Established osteoporosis: Less than -2.5 with fractures In general, you may wish to consider: Diagnosis Treatment Follow-up DEXA Normal BMD Prevention 2-3 years Osteopenia Prevention/Therapy 1-2 years Osteoporosis Therapy Yearly TECHNICAL DOCUMENTATION: JOB ID: [id number] [employer]- All Rights Reserved Reading location - IP/workstation name: [email or web address]
== END ==
LOC: EDSTATUS 14:00 → WI 14:01
PROVIDERS: ATTEND Internal Medicine
DX: M85.88 Other specified disorders of bone density and structure, other site (principal); N95.9 Unspecified menopausal and perimenopausal disorder
CPT/HCPCS: 77080

== ENCOUNTER → 2018-09-20 | Outpatient (CLI) | payer BC, MEDICARE, OTHER ==
[2018-09-20 08:47] LABS: ABSOLUTE EOSINOPHILS # (AUTO) 0.1 10^3/uL (0.0-0.6); ABSOLUTE LYMPHOCYTES (AUTO) 1.4 10^3/uL (0.5-4.7); ABSOLUTE MONOCYTES (AUTO) 0.3 10^3/uL (0.1-1.4); ABSOLUTE NEUT (AUTO) 2.7 10^3/uL (1.7-8.2); EOSINOPHILS % (AUTO) 2.5 % (0-6); HEMATOCRIT 38.8 % (36.0-47.0); HEMOGLOBIN 13.3 g/dL (12.0-15.5); LYMPHOCYTES % (AUTO) 30.8 % (13-45); MEAN CORPUSCULAR HEMOGLOBIN 30.2 pg (27.0-33.4); MEAN CORPUSCULAR HGB CONC 34.3 g/dL (32.0-36.0); MEAN CORPUSCULAR VOLUME 88 fl (80-97); MONOCYTES % (AUTO) 5.7 % (3-13); PLATELET COUNT 190 10^3/uL (150-450); RED BLOOD COUNT 4.42 10^6/uL (3.72-5.28); RED CELL DISTRIBUTION WIDTH 13.8 % (11.5-14.0); TOTAL CELLS COUNTED % (AUTO) 100 %; WHITE BLOOD COUNT 4.6 10^3/uL (4.0-10.5)
[2018-09-20 09:14] LABS: ALANINE AMINOTRANSFERASE 20 U/L (9-52); ALBUMIN 4.2 g/dL (3.5-5.0); ALKALINE PHOSPHATASE 60 U/L (38-126); ANION GAP 6 (5-19); ASPARTATE AMINO TRANSFERASE 26 U/L (14-36); BILIRUBIN,DIRECT 0.3 mg/dL (0.0-0.4); BILIRUBIN,TOTAL 0.5 mg/dL (0.2-1.3); BLOOD UREA NITROGEN 19 mg/dL (7-20); CALCIUM 9.3 mg/dL (8.4-10.2); CARBON DIOXIDE 30 mmol/L (22-30); CHLORIDE 106 mmol/L (98-107); GLUCOSE 85 mg/dL (75-110); POTASSIUM 4.8 mmol/L (3.6-5.0); SODIUM 142.2 mmol/L (137-145)
== END ==
LOC: OD 07:48
PROVIDERS: ATTEND Internal Medicine
DX: K57.90 Diverticulosis of intestine, part unspecified, without perforation or abscess without bleeding (principal); R10.9 Unspecified abdominal pain
CPT/HCPCS: 36415; 80053; 85025

== ENCOUNTER 2019-05-04 14:06 | Day surgery (SDC) | payer BC, MEDICARE, OTHER ==
[2019-05-04] MEDS ORDERED: LIDOCAINE 2% VISCOUS SOLN 15 ML UDCUP ONE (14:21)
[2019-05-04] MEDS ORDERED: FENTANYL CITRATE INJ/PF 100 MCG/2 ML AMPUL ONE (14:21)
[2019-05-04] MEDS ORDERED: DIPHENHYDRAMINE HCL 50 MG/ML VIAL ONE (14:21)
[2019-05-04] MEDS ORDERED: NALOXONE HCL INJ/PF 0.4 MG/1 ML SDV ONE (14:22)
[2019-05-04] MEDS ORDERED: BENZOCAINE 20% AEROSOL SPRAY 60 GM ONE (14:22)
[2019-05-04] MEDS ORDERED: FLUMAZENIL INJ 0.5 MG/5 ML VIAL ONE (14:22)
[2019-05-04] MEDS: MIDAZOLAM 2 MG/2 ML INJ ONE ×2 (15:01→15:05)
--- NOTE | 2019-05-04 15:59 | XCELERA REPORT ---
Study ID: [id number] [id number] Transesophageal Echocardiogram Report Name: DENEEN MCCARTHY V Age: 74 yrs Gender: Female : 1945 Patient Status: Outpatient Patient Location: END Study Date: 05/04/2019 02:52 PM History: KADEEM Reason For Study: TIA Ordering Physician: LUDIVINA BURROUGHS Performed By: Perla Tsai Interpretation Summary This degree of valvular regurgitation is within normal limits. No cardiac source of emboli noted. Left ventricular systolic function is normal. Ejection Fraction = >55%. The right ventricle is normal in size and function. This degree of valvular regurgitation is within normal limits. No cardiac source of emboli noted. Moderate atherosclerotic plaque(s) in the ascending aorta. There is no pericardial effusion. Procedure A complete two-dimensional transesophageal echocardiogram was performed (2D, spectral and color flow Doppler). Informed consent for Transesophageal Echocardiogram, and use of a contrast agent as needed, was obtained prior to the procedure. Saline contrast utilized. The patient was brought to the Endoscopy in a fasting state. An intravenous line was placed. A topical anesthetic agent was used for oropharangeal anesthesia. A bite block was inserted. IV conscious sedation was administered using Midazolam 2 mg IV + Fentanyl 50 mcg IV. The patient's vital signs, including blood pressure, heart rate, pulse oximetry and cardiac rhythm were monitored thoughout the procedure. The transesophageal probe was passed without difficulty. The usual views were obtained; basal, mid-esophageal, transgastric and aortic views. The patient tolerated the procedure well without evidence of orophangeal or esophageal trauma. Subsequent to all the images being obtained the probe was removed with out trauma. Left Ventricle The left ventricle is normal in size. There is no thrombus. There is normal left ventricular wall thickness. Left ventricular systolic function is normal. Ejection Fraction = >55%. No regional wall motion abnormalities noted. Right Ventricle The right ventricle is normal in size and function. Atria The interatrial septum is intact with no evidence for an atrial septal defect. There is no Doppler evidence for an atrial septal defect. Injection of contrast documented no interatrial shunt. The left atrial size is normal. No thrombus is detected in the left atrial appendage. Right atrial size is normal. Mitral Valve The mitral valve is normal in structure and function. There is no mitral valve stenosis. There is mild mitral regurgitation. Tricuspid Valve The tricuspid valve is normal in structure and function. There is no tricuspid stenosis. There is trace tricuspid regurgitation. Aortic Valve The aortic valve is trileaflet. The aortic valve opens well. The aortic valve is normal in structure and function. No hemodynamically significant valvular aortic stenosis. No aortic regurgitation is present. Pulmonic Valve The pulmonic valve is not well visualized. Arteries The aortic root is normal size. Moderate atherosclerotic plaque(s) in the ascending aorta. Pericardium There is no pericardial effusion. : LUDIVINA BURROUGHS Anil
[2019-05-04 16:08] VITALS: BP 138/74
== END 2019-05-04 16:10 | disposition home or self-care (01) ==
LOC: END 14:06
PROVIDERS: ATTEND Internal Medicine
DX: Z79.82 Long term (current) use of aspirin (principal); I63.89 Other cerebral infarction
CPT/HCPCS: 93312; 93325; J2250; J3490 ×2; J3010; J1200; J2310

== ENCOUNTER 2019-05-22 21:27 | Observation (INO) | payer BC, MEDICARE, OTHER ==
--- NOTE | 2019-05-22 21:46 | ER Document Report ---
ED Medical Screen (RME) - General Chief Complaint: Numbness Stated Complaint: TINGLING,BLOOD PRESSURE ISSUES Time Seen by Provider: 05/22/19 21:36 Primary Care Provider: KULWANT HAYES MD [Primary Care Provider] - Follow up as needed Mode of Arrival: Ambulatory Information source: Patient Notes: 74-year-old female presents to ED for complaint of tingling in first her right toes and then within 15 minutes after walking upstairs it was in both toes then within a few minutes it was up to her calves and now it is up to her waist. She states at home she took her blood pressure the first time it was 188/90 something and then she retook it it was 195 over became very concerned. She did have a recent stroke March 242018 and is very concerned because she has never had a blood pressure that high or these numbness and tingling in her toes and feet. She states right now she has slight headache, tingling in her feet calves and up to her waist and she is "fumbling her words a little bit "she states the she thinks deforming of her words is because she is anxious because of what is going on. She states now the tingling is mostly on the back of her right thigh. She is on Lipitor and baby aspirin states she is not on any blood pressure medicine. She states she just recently had a APARNA with Dr. Burroughs and it was good. I have greeted and performed a rapid initial assessment of this patient. A comprehensive ED assessment and evaluation of the patient, analysis of test results and completion of medical decision making process will be conducted by an additional ED providers. TRAVEL OUTSIDE OF THE [place] IN LAST 30 DAYS: No - Related Data Allergies/Adverse Reactions: codeine Adverse Reaction (Intermediate, Verified 05/04/19 14:08) N/V Past Medical History - Past Medical History Cardiac Medical History: Denies: Hx Coronary Artery Disease, Hx Heart Attack, Hx Hypertension Pulmonary Medical History: Denies: Hx Asthma, Hx Bronchitis, Hx COPD, Hx Pneumonia Neurological Medical History: Denies: Hx Cerebrovascular Accident, Hx Seizures Renal/ Medical History: Denies: Hx Peritoneal Dialysis Musculoskeltal Medical History: Denies Hx Arthritis Traumatic Medical History: Reports: Hx Fractures - knee Past Surgical History: Reports: Hx Orthopedic Surgery. Denies: Hx Hysterectomy - Immunizations Hx Diphtheria, Pertussis, Tetanus Vaccination: No Doctor's Discharge - Discharge Referrals: KULWANT HAYES MD [Primary Care Provider] - Follow up as needed
[2019-05-22 22:15] LABS: ABSOLUTE BASOPHILS # (AUTO) 0.1 10^3/uL (0.0-0.2); ABSOLUTE EOSINOPHILS # (AUTO) 0.1 10^3/uL (0.0-0.6); ABSOLUTE LYMPHOCYTES (AUTO) 1.7 10^3/uL (0.5-4.7); ABSOLUTE MONOCYTES (AUTO) 0.5 10^3/uL (0.1-1.4); ABSOLUTE NEUT (AUTO) 4.2 10^3/uL (1.7-8.2); BASOPHILS % (AUTO) 0.9 % (0-2); EOSINOPHILS % (AUTO) 2.1 % (0-6); HEMATOCRIT 39.2 % (36.0-47.0); HEMOGLOBIN 13.5 g/dL (12.0-15.5); LYMPHOCYTES % (AUTO) 25.9 % (13-45); MEAN CORPUSCULAR HEMOGLOBIN 30.6 pg (27.0-33.4); MEAN CORPUSCULAR HGB CONC 34.4 g/dL (32.0-36.0); MEAN CORPUSCULAR VOLUME 89 fl (80-97); MONOCYTES % (AUTO) 8.1 % (3-13); PLATELET COUNT 229 10^3/uL (150-450); RED BLOOD COUNT 4.41 10^6/uL (3.72-5.28); RED CELL DISTRIBUTION WIDTH 13.4 % (11.5-14.0); TOTAL CELLS COUNTED % (AUTO) 100 %; WHITE BLOOD COUNT 6.7 10^3/uL (4.0-10.5)
[2019-05-22 22:16] LABS: INTERNATIONAL RATION (INR) 0.97; PROTHROMBIN TIME 12.9 SEC (11.4-15.4)
[2019-05-22 22:17] LABS: PARTIAL THROMBOPLASTIN TIME 24.3 SEC (23.5-35.8)
[2019-05-22 22:27] LABS: ALBUMIN 4.2 g/dL (3.5-5.0); ALKALINE PHOSPHATASE 62 U/L (38-126); ANION GAP 6 (5-19); ASPARTATE AMINO TRANSFERASE 25 U/L (14-36); BILIRUBIN,TOTAL 0.3 mg/dL (0.2-1.3); BLOOD UREA NITROGEN 19 mg/dL (7-20); CALCIUM 9.4 mg/dL (8.4-10.2); CARBON DIOXIDE 31 mmol/L (22-30); CHLORIDE 103 mmol/L (98-107); GLUCOSE 107 mg/dL (75-110); POTASSIUM 4.5 mmol/L (3.6-5.0); TOTAL PROTEIN 6.9 g/dL (6.3-8.2)
--- NOTE | 2019-05-22 22:45 | RADIOLOGY REPORT (SQ) ---
EXAM DESCRIPTION: Noncontrast CT head CLINICAL HISTORY: 74 years Female Headache right-sided numbness TECHNIQUE: Noncontrast CT head. All CT scans at this facility use dose modulation, iterative reconstruction, and/or weight based dosing when appropriate to reduce radiation dose to as low as reasonably achievable. COMPARISON: May 04, 2018. FINDINGS: Mild periventricular and deep white matter hypodensities are nonspecific, but in a pattern compatible with chronic microvascular ischemic change. There is suggestion of prior lacunar infarct involving the left caudate region, stable when compared to prior exam. No acute hemorrhage or mass effect. Visualized portions of paranasal sinuses and mastoids are clear. Visualized portions of the calvarium are within normal limits. IMPRESSION: 1. No acute intracranial hemorrhage or mass effect. Findings compatible with chronic microvascular ischemic change are noted. If there is clinical concern for acute stroke, consider MRI brain as a more sensitive evaluation.
[2019-05-23] MEDS ORDERED: LABETALOL HCL INJ 20 MG/4 ML DISP.SYRIN IV PRN (02:24)
[2019-05-23] MEDS ORDERED: MAG HYDROX/AL HYDROX/SIMETH SUSP 30 ML UDCUP PO PRN (02:24)
[2019-05-23] MEDS ORDERED: ONDANSETRON HCL INJ/PF 4 MG/2 ML SDV IV PRN (02:24)
[2019-05-23] MEDS ORDERED: TEMAZEPAM 15 MG CAPSULE PO PRN (02:24)
[2019-05-23] MEDS ORDERED: MAGNESIUM HYDROXIDE SUSP 30 ML UDCUP PO PRN (02:24)
--- NOTE | 2019-05-23 03:58 | RADIOLOGY REPORT (SQ) ---
EXAM DESCRIPTION: XR CHEST 1 VIEW COMPLETED DATE/TME: 05/23/2019 02:34 CLINICAL HISTORY: 74 years, Female, htn COMPARISON: None. NUMBER OF VIEWS: One TECHNIQUE: AP view the chest LIMITATIONS: None. FINDINGS: The lungs are clear. The heart is normal in size. There is no pneumothorax or pleural effusion. A small hiatal hernia is noted. There is no acute fracture. IMPRESSION: No acute cardiopulmonary abnormality. Small hiatal hernia. copyright 2010 [employer]- All Rights Reserved
--- NOTE | 2019-05-23 05:21 | PDOC H&P ---
History of Present Illness Admission Date/PCP: 05/23/2019 01:56 KULWANT HAYES MD Patient complains of: Numbness and tingling History of Present Illness: DENEEN MCCARTHY is a 74 year old female who presented to the emergency room with a 5-hour history of numbness and tingling. She admits numbness and tingling of sudden onset in her right foot which quickly spread to both lower extremities with ascension of the numbness and tingling to involve the entirety of both lower extremities up to the tops of her thighs. She became concerned that she may be having a stroke and checked her blood pressure which was elevated in the 190/100 range. She then took a baby aspirin and after that she felt her numbness and tingling became less intense. She also noted some associated difficulty with her speech and finding the words she wanted to say, but feels that this was due to her high level of anxiety. After arrival in the emergency room she began to experience a an associated minimal headache. She denies other associated or accompanying signs or symptoms. She admits a prior similar episode when she had a stroke 2 months ago. She has made a complete recovery from her previous stroke with the exception of residual left facial numbness. She denies identification of any additional aggravating or ameliorating factors for her numbness and tingling. In the emergency room she was noted to be initially hypertensive however her blood pressure returned to a normal/near normal level without administration of medications. A CT scan of her head was negative for acute stroke. The patient was subsequently placed in observation status such that she may have a MRI of the brain performed later this morning. Past Medical History Cardiac Medical History: Denies: Atrial Fibrillation, Congestive Heart Failure, Coronary Artery Disease, DVT, Myocardial Infarction, Hyperlipidema, Hypertension, Pulmonary Embolism Pulmonary Medical History: Denies: Asthma, Bronchitis, Chronic Obstructive Pulmonary Disease (COPD), Pn eumonia EENT Medical History: Denies: Cataracts, Ears - Hearing aids Neurological Medical History: Reports: Ischemic CVA Denies: Hemorrhagic CVA, Seizures Endocrine Medical History: Denies: Diabetes Mellitus Type 1, Diabetes Mellitus Type 2, Hyperthyroidism, Hypothyroidism, Obesity Renal/ Medical History: Denies: Chronic Kidney Disease, Nephrolithiasis Malignancy Medical History: Reports: None GI Medical History: Reports: Other - Colon polyps Denies: Cirrhosis, Crohn's Disease, Gastroesophageal Reflux Disease, Hepatitis, Peptic Ulcer Disease, Ulcerative Colitis Musculoskeltal Medical History: Denies: Arthritis, Gout Skin Medical History: Denies: Eczema, Psoriasis Psychiatric Medical History: Denies: Alcohol Dependency, Substance Abuse, Tobacco Dependency Traumatic Medical History: Reports: None Hematology: Denies: Anemia, Bleeding Tendencies Infectious Medical History: Reports: None Past Surgical History Past Surgical History: Reports: Orthopedic Surgery - Left knee and patella, Other - Colonoscopy Social History Information Source: Patient Lives with: Family Smoking Status: Former Smoker Electronic Cigarette use?: No Frequency of Alcohol Use: None Hx Recreational Drug Use: No Drugs: None Hx Prescription Drug Abuse: No - Advance Directive Resuscitation Status: Full Code Surrogate healthcare decision maker:: Janneth Mijares Family History Parental Family History Reviewed: Yes Children Family History Reviewed: No Sibling(s) Family History Reviewed.: Yes Medication/Allergy Home Medications: Acetaminophen [Tylenol 325 mg Tablet] 650 mg PO Q6HP PRN 05/03/19 Aspirin [Aspir-Low] 81 mg PO DAILY 05/03/19 Allergies/Adverse Reactions: codeine Adverse Reaction (Intermediate, Verified 05/04/19 14:08) N/V Review of Systems Constitutional: PRESENT: as per HPI, headache(s). ABSENT: chills, fever(s) Eyes: ABSENT: visual disturbances, other - Eye pain Ears: ABSENT: hearing changes, other - Ear pain Nose, Mouth, and Throat: PRESENT: as per HPI, headache(s). ABSENT: mouth pain, sore throat Cardiovascular: ABSENT: chest pain, palpitations Respiratory: ABSENT: cough, dyspnea Gastrointestinal: ABSENT: abdominal pain, constipation, diarrhea, nausea, vomiting Genitourinary: ABSENT: dysuria, hematuria Musculoskeletal: ABSENT: back pain, joint swelling, muscle weakness Integumentary: ABSENT: pruritus, rash Neurological: PRESENT: as per HPI, abnormal speech, numbness, tingling. ABSENT: confusion, convulsions, focal weakness, memory loss, syncope Psychiatric: PRESENT: as per HPI, anxiety. ABSENT: depression Endocrine: ABSENT: cold intolerance, heat intolerance, polydipsia, polyphagia, polyuria Hematologic/Lymphatic: ABSENT: easy bleeding, easy bruising Allergic/Immunologic: ABSENT: seasonal rhinorrhea Physical Exam Vital Signs: Temp Pulse Resp BP Pulse Ox 97.6 F 85 13 119/80 96 05/22/19 21:40 05/22/19 22:00 05/22/19 23:31 05/22/19 23:31 05/22/19 23:31 Intake & Output 05/21/19 05/22/19 05/23/19 23:59 23:59 23:59 Weight 63.9 kg General appearance: PRESENT: no acute distress, cooperative Head exam: PRESENT: atraumatic, normocephalic Eye exam: PRESENT: conjunctiva pink. ABSENT: conjunctival injection, scleral icterus Ear exam: PRESENT: normal external ear exam. ABSENT: bleeding, drainage Mouth exam: PRESENT: dry mucosa, neck supple Neck exam: ABSENT: thyromegaly, tracheal deviation Respiratory exam: PRESENT: clear to auscultation fe, symmetrical, unlabored Cardiovascular exam: ABSENT: clicks, gallop, rubs Pulses: PRESENT: normal radial pulses, normal dorsalis pedis pul Vascular exam: PRESENT: normal capillary refill. ABSENT: pallor GI/Abdominal exam: PRESENT: normal bowel sounds, soft. ABSENT: tenderness Rectal exam: PRESENT: deferred Extremities exam: ABSENT: joint swelling, pedal edema Musculoskeletal exam: ABSENT: deformity, dislocation Neurological exam: PRESENT: alert, oriented to person, oriented to place, oriented to time, oriented to situation, CN II-XII grossly intact. ABSENT: motor sensory deficit Psychiatric exam: PRESENT: appropriate affect, normal mood Skin exam: PRESENT: dry, intact, warm. ABSENT: jaundice, rash, urticaria Results Laboratory Results: 05/22/19 21:55 05/22/19 21:55 05/22/19 05/22/19 21:55 21:55 WBC 6.7 RBC 4.41 Hgb 13.5 Hct 39.2 MCV 89 MCH 30.6 MCHC 34.4 RDW 13.4 Plt Count 229 Seg Neutrophils % 63.0 Sodium 140.0 Potassium 4.5 Chloride 103 Carbon Dioxide 31 H Anion Gap 6 BUN 19 Creatinine 1.03 Est GFR ( Amer) > 60 Glucose 107 Calcium 9.4 Total Bilirubin 0.3 AST 25 Alkaline Phosphatase 62 Total Protein 6.9 Albumin 4.2 Lipase 237.6 Impressions: Head CT 05/22/19 21:48 IMPRESSION: 1. No acute intracranial hemorrhage or mass effect. Findings compatible with chronic microvascular ischemic change are noted. If there is clinical concern for acute stroke, consider MRI brain as a more sensitive evaluation. Assessment and Plan - Diagnosis (1) Labile hypertension Is this a current diagnosis for this admission?: Yes (2) Numbness and tingling of both lower extremities Is this a current diagnosis for this admission?: Yes (3) Expressive aphasia Is this a current diagnosis for this admission?: Yes (4) Acute anxiety Is this a current diagnosis for this admission?: Yes (5) Headache Qualifiers: Headache type: unspecified Headache chronicity pattern: acute headache Intractability: not intractable Qualified Code(s): R51 - Headache Is this a current diagnosis for this admission?: Yes - Plan Summary Summary: Patient is admitted observation status in the [facility] where she will receive routine supportive and symptomatic cares. Patient will be treated along the guidelines of the stroke protocol. An MRI of the brain will be obtained as soon as possible to determine if an acute stroke is present. Patient will receive Ativan 1 mg IV every 4 hours as needed for anxiety. If the patient's MRI is negative for stroke I would recommend discharge to home with prompt outpatient follow-up with Dr. Hayes for further consideration of ongoing evaluation. - Time Time Spent with patient: 35 or more minutes Medications reviewed and adjusted accordingly: Yes Anticipated discharge: Home Within: within 24 hours - Inpatient Certification Based on my medical assessment, after consideration of the patient's comorbidities, presenting symptoms, or acuity I expect that the services needed warrant INPATIENT care.: No I certify that my determination is in accordance with my understanding of Medicare's requirements for reasonable and necessary INPATIENT services [42 CFR 412.3e].: No
[2019-05-23] MEDS: HEPARIN SOD (PORCINE) 5,000 UNIT/ML 1 ML VIAL SUBCUT SCH ×2 (06:12→13:36)
[2019-05-23 07:52] LABS: CHOLESTEROL 206.22 mg/dL (0-200); TRIGLYCERIDES 87 mg/dL (<150)
[2019-05-23 08:03] LABS: DIRECT LDL 116 mg/dL (<100)
[2019-05-23] MEDS ORDERED: ACETAMINOPHEN 325 MG TABLET PO PRN (09:15)
[2019-05-23] MEDS ORDERED: ASPIRIN 81 MG TABLET, ENT COATED PO SCH (10:00)
[2019-05-23] MEDS ORDERED: FAMOTIDINE 20 MG TABLET PO SCH (10:00)
[2019-05-23] MEDS ORDERED: CLOPIDOGREL BISULFATE 75 MG TABLET PO SCH (10:00)
[2019-05-23] MEDS ORDERED: DOCUSATE SODIUM 100 MG CAPSULE PO SCH (10:00)
--- NOTE | 2019-05-23 15:17 | RADIOLOGY REPORT (SQ) ---
EXAM DESCRIPTION: MRI HEAD WITHOUT COMPLETED DATE/TIME: 05/23/2019 1:41 pm REASON FOR STUDY: Acute numbness COMPARISON: CT dated 05/22/2019. TECHNIQUE: Multiplanar imaging includes non-contrasted T1, T2, FLAIR, and Diffusion with ADC map seq uences. Images stored on PACS. LIMITATIONS: None. FINDINGS: ANATOMY: No anomalies. Normal vascular flow voids. Pituitary fossa normal. CSF SPACES: Normal in size and contour. No hemorrhage. CEREBRUM: A few high-signal intensity lesions scattered throughout the white matter on FLAIR imaging with distribution suggesting chronic micro-vascular ischemic change. Sulci and gyri normal in size a nd contour. No evidence of hemorrhage, mass or extraaxial fluid collection. POSTERIOR FOSSA: No signal alteration. No hemorrhage. No edema, masses or mass effect. Internal sea tory canals, cerebello-pontine angles, mastoids normal. DIFFUSION: Negative for acute or sub-acute infarction. ORBITS: No masses. Globes normal. PARANASAL SINUSES: No fluid levels. Mucosa normal. OTHER: No other significant finding. IMPRESSION: MINIMAL MICROVASCULAR ISCHEMIC CHANGE. OTHERWISE NORMAL STUDY. EVIDENCE OF ACUTE STROKE: NO. TECHNICAL DOCUMENTATION: JOB ID: [id number] 2010 [employer]- All Rights Reserved Reading location - IP/workstation name: [email or web address]
--- NOTE | 2019-05-23 15:50 | PDOC DISCHARGE SUMMARY ---
Impression - Admit/DC Date/PCP Admission Date/Primary Care Provider: 05/23/19 03:01 KULWANT HAYES MD Discharge Date: 05/23/19 - Discharge Diagnosis (1) Numbness and tingling of both lower extremities Is this a current diagnosis for this admission?: Yes (2) Elevated blood pressure reading Is this a current diagnosis for this admission?: Yes (3) Acute anxiety Is this a current diagnosis for this admission?: Yes (4) Headache Is this a current diagnosis for this admission?: Yes - Additional Information Resuscitation Status: Full Code Discharge Diet: Regular Referrals: KULWANT HAYES MD [Primary Care Provider] - Follow up as needed Home Medications: Acetaminophen [Tylenol 325 mg Tablet] 650 mg PO Q4HP PRN 05/23/19 Aspirin [Adult Low Dose Aspirin EC] 81 mg PO DAILY 05/23/19 Atorvastatin Calcium [Lipitor 40 mg Tablet] 40 mg PO QHS 05/23/19 Ergocalciferol (Vitamin D2) [Drisdol 50,000 unit (1.25MG) Capsule] 50,000 unit PO ESCALANTE 05/23/19 History of Present Illiness History of Present Illness: DENEEN MCCARTHY is a 74 year old female who presented to the emergency room with a 5-hour history of numbness and tingling. She admits numbness and tingling of sudden onset in her right foot which quickly spread to both lower extremities with ascension of the numbness and tingling to involve the entirety of both lower extremities up to the tops of her thighs. She became concerned that she may be having a stroke and checked her blood pressure which was elevated in the 190/100 range. She then took a baby aspirin and after that she felt her numbness and tingling became less intense. She also noted some associated difficulty with her speech and finding the words she wanted to say, but feels that this was due to her high level of anxiety. After arrival in the emergency room she began to experience a an associated minimal headache. She denies other associated or accompanying signs or symptoms. She admits a prior similar episode when she had a stroke 2 months ago. She has made a complete recovery from her previous stroke with the exception of residual left facial numbness. She denies identification of any additional aggravating or ameliorating factors for her numbness and tingling. In the emergency room she was noted to be initially hypertensive however her blood pressure returned to a normal/near normal level without administration of medications. A CT scan of her head was negative for acute stroke. The patient was subsequently placed in observation status such that she may have a MRI of the brain performed later this morning. Hospital Course Hospital Course: Patient was admitted after experiencing paresthesias in her left lower extremity on mildly in her right lower extremity. Patient had noted elevated blood pressures at home which was new for her. Of note patient's blood pressure readings at home are mostly in the 130s systolic and often in the 120s with only few occasions been in the 140s. Overnight when this episode happened, her blood pressure reading was in the 190 systolic. Given patient's history of stroke patient presented to the hospital for evaluation. She was admitted for observation. Head CT scan was negative. Lipid panel revealed dyslipidemia with mildly elevated LDL. Patient is already on atorvastatin and aspirin daily. MRI of the brain revealed no evidence of acute stroke. Patient still has some residual mild paresthesia in her right foot but states is mostly resolved at this point. Reviewing patient's lumbar MRI from last year, patient does have significant degenerative joint disease as well as disc bulging in the lumbar spine which is likely contributing to her symptoms. I have advised patient should her symptoms persist, to enroll in physical therapy in the outpatient setting. In the meantime, patient will like to try some aerobic exercise at home. Discharge planning consulted to give patient information about outpatient PT. Patient is stable at this time for discharge. No changes have been made to her medication regimen. As of blood pressure has remained within normal limits for the most of this morning and this afternoon, I will refrain from starting any antihypertensives as the elevated blood pressure readings may have been attributed to anxiety about having a stroke. Patient will follow-up with her primary care provider and will continue check her blood pressure readings at home. Physical Exam Vital Signs: Temp Pulse Resp BP Pulse Ox 98.2 F 71 16 123/69 100 05/23/19 12:11 05/23/19 14:00 05/23/19 12:11 05/23/19 12:11 05/23/19 12:11 Intake & Output 05/22/19 05/23/19 05/24/19 06:59 06:59 06:59 Intake Total 0 Balance 0 Weight 63.9 kg General appearance: PRESENT: no acute distress, cooperative Neck exam: ABSENT: JVD Respiratory exam: PRESENT: clear to auscultation fe Cardiovascular exam: PRESENT: +S1, +S2. ABSENT: tachycardia Neurological exam: PRESENT: alert, awake, oriented to person, oriented to place, oriented to time, oriented to situation, CN II-XII grossly intact. ABSENT: abnormal gait, ataxia - Normal [id number], rapid alternating hand movements and hged-px-[id number] test bilaterally, motor sensory deficit, aphasic Results Laboratory Results: WBC 6.7 10^3/uL (4.0-10.5) 05/22/19 21:55 RBC 4.41 10^6/uL (3.72-5.28) 05/22/19 21:55 Hgb 13.5 g/dL (12.0-15.5) 05/22/19 21:55 Hct 39.2 % (36.0-47.0) 05/22/19 21:55 MCV 89 fl (80-97) 05/22/19 21:55 MCH 30.6 pg (27.0-33.4) 05/22/19 21:55 MCHC 34.4 g/dL (32.0-36.0) 05/22/19 21:55 RDW 13.4 % (11.5-14.0) 05/22/19 21:55 Plt Count 229 10^3/uL (150-450) 05/22/19 21:55 Lymph % (Auto) 25.9 % (13-45) 05/22/19 21: [place] % (Auto) 8.1 % (3-13) 05/22/19 21:55 Eos % (Auto) 2.1 % (0-6) 05/22/19 21:55 Baso % (Auto) 0.9 % (0-2) 05/22/19 21:55 Absolute Neuts (auto) 4.2 10^3/uL (1.7-8.2) 05/22/19 21: Absolute Lymphs (auto) 1.7 10^3/uL (0.5-4.7) 05/22/19 21:55 Absolute Monos (auto) 0.5 10^3/uL (0.1-1.4) 05/22/19 21:55 Absolute Eos (auto) 0.1 10^3/uL (0.0-0.6) 05/22/19 21:55 Absolute Basos (auto) 0.1 10^3/uL (0.0-0.2) 05/22/19 21:55 Seg Neutrophils % 63.0 % (42-78) 05/22/19 21:55 PT 12.9 SEC (11.4-15.4) 05/22/19 21:55 INR 0.97 05/22/19 21:55 APTT 24.3 SEC (23.5-35.8) 05/22/19 21:55 Sodium 140.0 mmol/L (137-145) 05/22/19 21:55 Potassium 4.5 mmol/L (3.6-5.0) 05/22/19 21:55 Chloride 103 mmol/L (98-107) 05/22/19 21:55 Carbon Dioxide 31 mmol/L (22-30) H 05/22/19 21:55 Anion Gap 6 (5-19) 05/22/19 21:55 BUN 19 mg/dL (7-20) 05/22/19 21:55 Creatinine 1.03 mg/dL (0.52-1.25) 05/22/19 21:55 Est GFR ( Amer) > 60 (>60) 05/22/19 21:55 Est GFR (MDRD) Non-Af 52 (>60) L 05/22/19 21:55 Glucose 107 mg/dL (75-110) 05/22/19 21:55 Calcium 9.4 mg/dL (8.4-10.2) 05/22/19 21:55 Total Bilirubin 0.3 mg/dL (0.2-1.3) 05/22/19 21:55 Direct Bilirubin 0.0 mg/dL (0.0-0.4) 05/22/19 21:55 Neonat Total Bilirubin Not Reportable 05/22/19 21:55 Neonat Direct Bilirubin Not Reportable 05/22/19 21:55 Neonat Indirect Bili Not Reportable 05/22/19 21:55 AST 25 U/L (14-36) 05/22/19 21:55 ALT 14 U/L (<35) 05/22/19 21:55 Alkaline Phosphatase 62 U/L (38-126) 05/22/19 21:55 Troponin I < 0.012 ng/mL 05/23/19 07:09 Total Protein 6.9 g/dL (6.3-8.2) 05/22/19 21:55 Albumin 4.2 g/dL (3.5-5.0) 05/22/19 21:55 Triglycerides 87 mg/dL (<150) 05/23/19 07:09 Cholesterol 206.22 mg/dL (0-200) H 05/23/19 07:09 LDL Cholesterol Direct 116 mg/dL (<100) H 05/23/19 07:09 VLDL Cholesterol 17.0 mg/dL (10-31) 05/23/19 07:09 HDL Cholesterol 76 mg/dL (>40) 05/23/19 07:09 Lipase 237.6 U/L (23-300) 05/22/19 21:55 05/23/19 07:09 Troponin I < 0.012 Impressions: Head CT 05/22/19 21:48 IMPRESSION: 1. No acute intracranial hemorrhage or mass effect. Findings compatible with chronic microvascular ischemic change are noted. If there is clinical concern for acute stroke, consider MRI brain as a more sensitive evaluation. Head MRI 05/23/19 00:00 IMPRESSION: MINIMAL MICROVASCULAR ISCHEMIC CHANGE. OTHERWISE NORMAL STUDY. EVIDENCE OF ACUTE STROKE: NO. Chest X-Ray 05/23/19 02:34 IMPRESSION: No acute cardiopulmonary abnormality. Small hiatal hernia. copyright 2010 [employer]- All Rights Reserved Stroke Is this a Stroke Patient?: Yes Stroke Pt being discharged on Anti-thrombolytic therapy?: Yes Stroke Pt being discharged on Anti-coagulation therapy?: No Reason(s) for not prescribing Anti-coagulation therapy:: Not indicated Stroke Pt being discharged on Statins?: Yes Acute Heart Failure - Is this a Heart Failure Patient?: No
[2019-05-23 16:12] VITALS: BP 159/87
--- NOTE | 2019-05-23 17:06 | EKG REPORT ---
SEVERITY:- NORMAL ECG - SINUS RHYTHM : Confirmed by: Sydni Stevens MD 23-May-2019 17:06:15
[2019-05-23] MEDS ORDERED: ATORVASTATIN CALCIUM 40 MG TABLET PO SCH (22:00)
[2019-05-23] MEDS ORDERED: ATORVASTATIN CALCIUM 20 MG TABLET PO SCH (22:00)
[2019-05-28] MEDS ORDERED: ERGOCALCIFEROL (VITAMIN D2) 50000 UNIT (1.25 MG) CAPSULE PO SCH (09:15)
== END 2019-05-23 16:33 | disposition home or self-care (01) ==
LOC: ER 21:27 → EH 05-23 03:01 → 3W 05-23 05:28
PROVIDERS: ADMIT Emergency Medicine; ATTEND Emergency Medicine
DX: R20.0 Anesthesia of skin (principal); R20.2 Paresthesia of skin; R03.0 Elevated blood-pressure reading, without diagnosis of hypertension; F41.9 Anxiety disorder, unspecified; R51 Headache; R47.01 Aphasia; I69.398 Other sequelae of cerebral infarction; E78.5 Hyperlipidemia, unspecified; M51.86 Other intervertebral disc disorders, lumbar region; Z79.899 Other long term (current) drug therapy; Z79.82 Long term (current) use of aspirin; Z87.891 Personal history of nicotine dependence
CPT/HCPCS: 36415; 70450; 70551; 71045; 80053; 80061; 83690; 84484; 85025; 85610; 85730; 93005; 93010; 99284; G0378

== ENCOUNTER → 2019-11-17 | Outpatient (CLI) | payer BC, MEDICARE, OTHER ==
--- NOTE | 2019-11-19 08:40 | RADIOLOGY REPORT (SQ) ---
EXAM DESCRIPTION: MRI RT UPPER JOINT WITHOUT IMAGES COMPLETED DATE/TIME: 11/17/2019 5:20 pm REASON FOR STUDY: M75.101 UNSP ROTATR-CUFF TEAR/RUPTR OF RIGHT SHOULDER, NOT TRAUMA M75.101 UNSP RO TATR-CUFF TEAR/RUPTR OF RIGHT SHOULDER, NOT T COMPARISON: None. TECHNIQUE: Right shoulder images acquired and stored on PACS. Multiplanar imaging to include fat sen sitive sequences such as T1, water sensitive sequences such as FST2/STIR, cartilage sensitive sequenc es such as FSPD/gradient-echo sequences. LIMITATIONS: None. FINDINGS: BONE MARROW AND CORTEX: Heterogeneous marrow pattern, particularly on T2 weighted sequence s. T1 sequences suggest this is mild patchy red marrow. No evidence of fracture. JOINT OR BURSAL EFFUSION: Mild bursitis. Trace fluid in the joint with potential debris. GLENO-HUMERAL ARTICULATION: Mild subchondral cysts in the posterior glenoid. Likely related overlyin g chondral loss. ACROMION AND AC JOINT: Relatively mild degenerative changes with slight dorsal hypertrophy. No lar ge acromial osteophytes. Subacromial space is relatively preserved. ROTATOR CUFF AND INTERVAL: Heterogeneous cuff, tendinosis with mild partial-thickness areas of tear c lose to insertion. No full-thickness tear. LABRUM AND BICEPS LABRAL COMPLEX: Poorly assessed. Suspect fraying in the anchor. Biceps tendon l ooks intact. REMAINDER OF LABRUM AND IGHL : Degenerative blunting generally suspected. PERIARTICULAR AND ADJACENT SOFT TISSUES: No masses or abnormal nodes. OTHER: No other significant finding. IMPRESSION: 1. Cuff tendinosis and partial tear. No full-thickness breech identified. 2. Other findings as above. TECHNICAL DOCUMENTATION: JOB ID: [id number] 2010 [employer]- All Rights Reserved Reading location - IP/workstation name: [email or web address]
== END ==
LOC: RAD 16:29
PROVIDERS: ATTEND Orthopaedic Surgery Sports Medicine
DX: M75.101 Unspecified rotator cuff tear or rupture of right shoulder, not specified as traumatic (principal)

== ENCOUNTER → 2020-02-07 | Outpatient (CLI) | payer BC, MEDICARE ==
--- OUTSIDE RECORDS SUMMARY | 2020-02-08 18:18 | XMS REPORT ---
:1945 Author Organization [facility] Address [facility] [address] [place] [id number] Care Team Providers Name Role Phone Unavailable Unavailable Unavailable Allergies, Adverse Reactions, Alerts This patient has no known allergies or adverse reactions. Medications Ordered Filled Start Stop Current Ordering Indication Dosage Frequency Signature Comments Components Medication Medication Date Date Medication? Clinician (SIG) Name Name cyanocobala No 1mL cyanocobal min (vit mccrary (vit B-12) 1,000 B-12) mcg/mL 1,000 injection mcg/mL solution injection Inject 1 mL solution by Inject 1 intramuscul mL by ar route. intramuscu lar route. Duexis 800 No 1 TID Duexis 800 mg-26.6 mg mg-26.6 mg tablet Take tablet 1 tablet 3 Take 1 times a day tablet 3 by oral times a route. day by oral route. Motrin 800 No 1 Q1D Motrin 800 mg tablet mg tablet Take 1 Take 1 tablet tablet every day every day by oral by oral route. route. tizanidine No 1 Q6H tizanidine 4 mg tablet 4 mg Take 1 tablet tablet Take 1 every 6 tablet hours by every 6 oral route. hours by oral route. tramadol 50 No 1 Q6H tramadol mg tablet 50 mg Take 1 tablet tablet Take 1 every 6 tablet hours by every 6 oral route. hours by oral route. Tylenol No 2 Q4H Tylenol Extra Extra Strength Strength 500 mg 500 mg tablet Take tablet 2 tablets Take 2 every 4 tablets hours by every 4 oral route. hours by oral route. dexamethaso No dexamethas ne 4 mg one 4 mg tablet tablet ergocalcife No ergocalcif rol carli (vitamin (vitamin D2) 50,000 D2) 50,000 unit unit capsule capsule nadolol 20 No nadolol 20 mg tablet mg tablet Problems Condition Condition Condition Status Onset Resolution Last Treatin g Comments Name Details Category Date Date Treatment Clinician Date Muscle Muscle Problem Active weakness Weakness 06-22 00:00: 00 Abnormal Abnormal Problem Active posture Posture 06-22 00:00: 00 Degeneratio Degeneratio Problem Active n of n of 06-08 interverteb Interverteb 00:00: ral disc ral Disc 00 Low back Low Back Problem Active pain Pain 06-08 00:00: 00 B12 B12 Problem Active deficiency Deficiency 06-08 monitoring Monitoring 00:00: 00 No known No known [id number] active active problems problems Procedures Procedure Date / Time Performed Performing Clinician Flako erickson Operative Procedure on Knee 2010-03-29 00:00:00 Cataract Surgery Results This patient has no known results. Assessments Condition Name Status Diagnosis Date Treating Clinici an Low back pain Active 2018-08-10 14:09:24 Degeneration of intervertebral disc Active 2018-08-10 1 4:12:58 Abnormal posture Active 2018-07-20 16:46:27 Muscle weakness Active 2018-07-20 16:46:27 Low back pain Active 2018-07-20 16:46:27 Degeneration of intervertebral disc Active 2018-07-20 1 6:46:27 Abnormal posture Active 2018-07-18 16:49:25 Muscle weakness Active 2018-07-18 16:49:25 Low back pain Active 2018-07-18 16:49:25 Degeneration of intervertebral disc Active 2018-07-18 1 6:49:25 Abnormal posture Active 2018-07-11 17:25:45 Muscle weakness Active 2018-07-11 17:25:45 Low back pain Active 2018-07-11 17:25:45 Degeneration of intervertebral disc Active 2018-07-11 1 7:25:45 Low back pain Active 2018-06-08 13:49:13 Degeneration of intervertebral disc Active 2018-06-08 1 4:16:36 Encounters Start End Encounter Admission Attending Care Care Encounter Date/Time Date/Time Type Type Clinicians Facility Department ID 2019-03-24 2019-03-24 Outpatient [facility] [id number] 09:26:05 09:28:33 2018-08-10 2018-08-10 Na Mcgee [id number] 00:00:00 00:00:00 Guirgues, Surgical Surgical 0515 MD: [address] [facility] [address], [place] [address], Ph. 2018-07-20 2018-07-20 Dori Mcgee [id number] 00:00:00 00:00:00 Mark, Surgical Surgical 0424 DPT: [address], [place] [address], Ph. 2018-07-18 2018-07-18 Galina Searseret [id number] 00:00:00 00:00:00 Michael, Surgical Surgical 0422 DPT: [address] [facility] [address], [facility] [place] [address], Ph. 2018-07-11 2018-07-11 Galina Searseret [id number] 00:00:00 00:00:00 Michael, Surgical Surgical 0415 DPT: [address] [facility] [address], [place] [address], Ph. 2018-06-08 2018-06-08 Na Searseret [id number] 00:00:00 00:00:00 Guirgues: Surgical Surgical [address] [facility], [place] [address], Ph. [phone] Plan of Treatment Planned Activity Planned Date Details Comments Future Scheduled Test [code = ] Future Scheduled Test [code = ] Future Scheduled Test [code = ] Future Scheduled Test [code = ] Future Scheduled Test [code = ] Future Scheduled Test [code = ] Future Scheduled Test [code = ] Future Scheduled Test [code = ] Social History Social Habit Start Date Stop Date Comments Tobacco smoking status NVIS 2019-03-24 00:00:00 2019-03-24 00:00 :00 Smoking Status Start Date Stop Date Former Smoker Vital Signs Vital Name Observation Time Observation Value Comments Height 2018-08-10 00:00:00 67 [in_i] BMI (Body Mass Index) 2018-08-10 00:00:00 22.7 kg/m2 Body Weight 2018-08-10 00:00:00 145 [lb_av] Body height 2019-03-24 09:09:00 170.2 cm Body weight 2019-03-24 09:09:00 65.9 kg Oxygen saturation in Arterial blood by 2019-03-24 09:09:00 97 % Pulse oximetry Systolic blood pressure 2019-03-24 09:09:00 174 mm[Hg] Diastolic blood pressure 2019-03-24 09:09:00 96 mm[Hg] Heart rate 2019-03-24 09:09:00 83 /min Body temperature 2019-03-24 09:09:00 36.61 Barbi Respiratory rate 2019-03-24 09:09:00 18 /min Hospital Discharge Instructions 1. Low back pain 2. Degeneration of intervertebral disc Duexis 800 mg-26.6 mg tablet TylenolExtra Strength 500 mg tablet tizanidine 4 mg tablet tramadol 50 mg tablet Discussion Note Wediscussed the option of injections if she fails the conservative management but at this point am notcan consider any surgical intervention. Patient educational handouts: No information available.
== END ==
LOC: HHS 09:17
DX: Z12.83 Encounter for screening for malignant neoplasm of skin (principal)

== ENCOUNTER → 2020-04-09 | Outpatient (CLI) | payer BC, MEDICARE, OTHER ==
[~2020-04-09] MED LIST: COVID-19 VACCINE (PFIZER)/PF 30 MCG/0.3 ML VIAL IM ONE; EPINEPHRINE INJ/PF 1 MG/1 ML AMPULE IM PRN
== END ==
LOC: EMPHEALTH 09:27
PROVIDERS: ATTEND Internal Medicine
DX: Z23 Encounter for immunization (principal)
CPT/HCPCS: 91300